=== PATIENT | female | born 1955 | race Caucasian/White ===

== ENCOUNTER 2021-05-29 09:27 | Outpatient (CLI) | payer OTHER, SELFPAY ==
--- NOTE | 2021-05-29 09:35 | ECG_ITS ---
Measurements Intervals [place] Rate: 83 P: 40 MN: 134 QRS: 40 QRSD: 77 T: 46 QT: 344 QTc: 406 Interpretive Statements SINUS RHYTHM BASELINE ARTIFACT- I, II, III, AVR, AVL, AVF NORMAL ECG Electronically Signed On 05-29-2021 9:51:15 [employer]UM [employer]IEF by Ed Amato D.O.
== END 2021-05-29 09:28 | disposition home or self-care (01) ==
LOC: ANHSURGERY 09:30
PROVIDERS: PCP Internal Medicine; Visit Provider Orthopaedic Surgery
DX: Z01.810 Encounter for preprocedural cardiovascular examination (principal); I10 Essential (primary) hypertension
CPT/HCPCS: 93005

== ENCOUNTER 2021-06-03 00:30 | Day surgery (SDC) | payer OTHER, SELFPAY ==
--- NOTE | 2021-05-27 15:44 | PC.NURSE ---
Report to the Outpatient Waiting Room, entrance under the green pavilion located off [facility], at time _1230 on date __06/03/21 . OR Time: __1430 . - You and your visitor will be asked a series of questions to screen for COVID 19 for your protection. - A mask is required within the hospital. - Only one visitor is allowed at this time. Patient visitors will be guided where to wait when not with patient. Preoperative COVID Testing Requirements: No COVID Test needed if: (proof is required; if not received patient will have Rapid Test prior to entry) - Patient has received COVID Vaccine at least 14 days prior to procedure date or - Patient has positive COVID test result within last 90 days of surgery date. COVID Test needed if above criteria is not met If not COVID vaccinated a COVID test must be conducted within 72 hours of surgery and patient is asked to isolate self from time of testing until procedure. You will go to the [facility] for your COVID testing. The [employer] [facility] site is located at the corner of [address] [facility]. You will only be called if COVID results are positive and your surgeon may reschedule your elective surgery date. Patients may have clear liquids (water, carbonated beverages, clear teas, apple juice) until 3 hours prior to surgery with a maximum of 20 ounces. - No food from midnight until time of surgery - Infants may have breast milk until 4 hours before surgery, formula 6 hours prior to surgery. - Children will be allowed to drink immediately following surgery. If applicable, please bring a bottle or sippy cup to assist with drinking. Juice, water, soda, and popsicles are readily available. For infants on formula, please bring formula the day of surgery. Pacifiers are allowed. Take the following medications with a SIP of water the morning of surgery: __NONE Medications to discontinue per physician __ALL VITAMINS AND SUPPLEMENTS 3 DAYS PRE OP Date to take last dose___05/30/21 Please no make-up, nail guatemalan, hairspray, perfume, deodorant, or body powder the day of surgery. No jewelry (including any body piercings) or valuables the day of surgery, leave them at home. Please take a shower or bath the night before, or the morning of, surgery with an antibacterial soap. Wear comfortable, loose fitting clothing. Children are encouraged to wear pajamas. - Jewelry must be removed prior to entering the operating room. Rings and piercings that are not removed may be cut off. - The hospital will not accept responsibility for valuables. - Please leave all valuables, including medications, at home the day of surgery. If you are going home after surgery, a licensed lifter/driver must drive you home. - NO public transportation without another adult. - We recommend that an adult stay with you for 24 hours following discharge. - We also recommend that you do not drive, make important decision, drink alcoholic beverages, or take any drugs that were not prescribed by your health care provider for at least 24 hours after your discharge time. For Pediatric surgeries, we recommend two adults accompany the child home (only one inside the building at this time). Follow any additional instructions given to you from your surgeon. Telephone instructions given to and asked if any additional questions and then verbalized understanding. Patient advised to call surgeon office or pre surgery nurse liaison [phone] if any additional questions.
[2021-05-27 15:49] VITALS: BMI 26.9
--- NOTE | 2021-05-31 15:22 | P.PNAN_ITS ---
Anes - Initial Pre Proc Eval Procedure: Operation Date: 06/03/21 11:00 Proposed Procedures p Evaluation Under Anesthesia of Right Shoulder with Injection - David Orellana MD Date/Time: 05/31/21 15:22 Surgeon: David Orellana MD Pre Op Diagnosis: right frozen shoulder Patient Data Age: 66 Gender: F Height: 1.65 m Weight: 73.5 kg Allergies Allergy/AdvReac Type Severity Reaction Status Date / Time atorvastatin [From Lipitor] AdvReac Muscle Verified 06/03/21 09:49 WEAKNESS ezetimibe [From Zetia] AdvReac Muscle Verified 06/03/21 09:49 WEAKNESS Home Medications Medication Instructions Recorded Confirmed Type evolocumab 140 mg/mL subcutaneous 140 mg SUBCUT [id number] 04/25/20 06/03/21 History pen injector solifenacin 10 mg tablet 10 mg PO DAILY 04/25/20 06/03/21 History lisinopril 10 mg tablet 10 mg PO DAILY 05/01/21 06/03/21 History amlodipine 10 mg tablet 10 mg PO QPM 05/21/21 06/03/21 History acetaminophen [Tylenol 8 Hour] 650 mg PO PRN PRN 05/27/21 06/03/21 History cholecalciferol (vitamin D3) 125 mcg PO DAILY 05/27/21 06/03/21 History multivitamin [Daily Multi-Vitamin] 1 tablet PO DAILY 05/27/21 06/03/21 History Patient hx anesthesia problems: none Family hx anesthesia problems: none Results Review: All pre-operative results and documents have been reviewed as part of the pre-operative evaluation. [facility] Past Medical History Medical History (Updated 05/31/21 @ 15:23 by Tommy Harkins MD) Adhesive capsulitis of right shoulder BMI 27.0-27.9,adult Hyperlipidemia Hypertension Surgical History Surgical History Previous back surgery L5-S1 fusion, 2013, Dr. Amaya Family History Family History Other Cancer Diabetes mellitus Heart disease Hypertension Social History Social History Smoking packs per day: 0.5 Smoking cigarettes per day: 10.0 Years smoked: 10 Smoking pack-years: 5.00 Smoking status: Former smoker Tobacco type: cigarettes Smoking end date: 05/11/97 Alcohol intake: current Drinks per week: 3 Alcohol use details: occasional Living arrangements: with family Additional occupation/education comments: [employer] Gender identity (if verbalized by the patient): Female Spiritual care concerns: No Anes - Eval Final PreProcedure Day of Procedure 05/31/21 15:22 Patient weight: overweight Heart: regular rate and rhythm Lungs: clear to auscultation and normal air movement Airway: Mallampati scale class II Neurological: alert and oriented Last oral intake: >/= 8 hours ASA classification: II Emergent: no Anesthetic plan: proceed Anesthesia type and monitoring: general GIVS Results Review: All pre-operative results and documents have been reviewed as part of the pre-operative evaluation. Informed Consent: The patient's anesthetic plan and its attendant risks and benefits were discussed with the patient/family/POA. Questions were solicited and answers provided to the satisfaction of the patient/family/POA.
[2021-06-03] VITALS (8 sets, daily range): BP systolic 103–134; BP diastolic 70–84; PULSE 68–87; RESP 12–20; TEMP 36.2–37.4; O2SAT 95–100
[2021-06-03] MEDS: ACETAMINOPHEN 500 MG TABLET 1000 MG PO (09:50)
[2021-06-03] MEDS: LACTATED RINGERS 1,000 ML 30 ML IV CONT (10:00)
--- NOTE | 2021-06-03 10:03 | WPDHPUPDATE1 ---
History and Physical Update Update Date/Time: 06/03/21 10:03 History and Physical has been reviewed, including an updated exam of the patient. There are NO changes in the patient's condition. Risks, benefits, and alternatives have been discussed and questions answered. Patient agrees to proceed with procedure.
[2021-06-03] MEDS: KETOROLAC 15 MG/ML VIAL (*BKC) IV PUSH (10:05)
[2021-06-03] MEDS: TRIAMCINOLONE ACET INJ SUSP 50 MG/5 ML VIAL 20 MG IM (10:43)
--- NOTE | 2021-06-03 10:58 | P.OP_ITS ---
Procedure Note - Detailed Date of Procedure 06/03/21 Pre-op Diagnosis right frozen shoulder Post-op Diagnosis same Procedure Performed Evaluation under anesthesia right shoulder with manipulation and intra-articular injection Surgeon David Orellana MD Biometrics Specialist Annette Ruiz Anesthesia general Description of Procedure The patient was identified and proper site identified. She was taken back to the operating area and left on the patient gurney. After general anesthetic induction, the right shoulder was evaluated. After the evaluation, manipulation was carried out and then range of motion again re-evaluated. The values are noted below. Pre manipulation post manipulation Elevation: 120? 160? External rotation: 20? 80? Internal rotation: 45? 70? After the evaluation and manipulation, the shoulder was injected intra- articularly with 2 milliliters of 1% lidocaine and 20 milligrams of Kenalog without incident. Band-Aid was applied. She tolerated procedure well and was taken back to recovery area in stable condition. There were no known intraoperative complications. Estimated Blood Loss 0 Drains No Packing No Pathology other (N/A) Complications No immediate complications Condition stable Disposition PACU
[2021-06-03] MEDS: fentaNYL CITRATE INJ (*CRX) 100 MCG/2 ML VIAL 25 MCG IV PUSH ×2 (11:13→11:22)
[2021-06-03] MEDS: ONDANSETRON INJ 4 MG/2 ML VIAL IV PUSH (12:29)
== END 2021-06-03 12:44 | disposition home or self-care (01) ==
PROVIDERS: PCP Internal Medicine; Visit Provider Orthopaedic Surgery
PROC: (CPT 23700; principal; 2021-06-03 11:00)
DX: M75.01 Adhesive capsulitis of right shoulder (principal); I10 Essential (primary) hypertension; Z98.1 Arthrodesis status; Z87.891 Personal history of nicotine dependence; E78.5 Hyperlipidemia, unspecified
CPT/HCPCS: 23700; 93005; A9270; J1100; J1885; J2250; J2405; J2704; J3010; J3301; J7120

== ENCOUNTER 2021-07-02 10:00 | Outpatient (RCR) | payer OTHER, SELFPAY ==
[2021-06-04 10:29] VITALS: BP_SYST 170
--- NOTE | 2021-06-04 11:38 | PTOPEVAL ---
Thank you for referring Isabella Portillo to [facility].? The patient is scheduled to be seen for therapy 2 x/week for 5 weeks. Please review, sign, date and return this plan of care JOSE. I agree with and certify that the following plan of care is medically necessary. Referring Physician Date Attending Provider: David Orellana MD Diagnosis right frozen shoulder with manipulation Onset 06/03/21- manipulation Additional Evaluation Detail She received therapy at [place] to address her shoulder from October 2020 for 10 weeks. Her symptoms started 09/28. She retired in September from a very stressful job. Subjective Information She reports her main issue is Query Text:As Reported By Patient/ reaching motions, especially Family behind her back for ADL's. Reports improved range since her manipulation yesterday. She does feel she is able to move her right shoulder better. Hobbies: walk dog, play cards, boating. Pain Assessment Right Shoulder(s) Reported Pain Level 2 Pain Description Aching Pain Frequency Chronic,Continuous Lowest Pain Intensity 1 Greatest Pain Intensity 4 Pain Aggravating Factors ADL's Upper Extremity Range of Motion Scapular/ Shoulder Range of Motion Left Shoulder Flexion - Active 170 Shoulder Extension - Active 65 Shoulder Abduction - Active 170 Shoulder Medial Rotation - Active 85 Shoulder Medial Rotation - Active T4:Reach Behind the Back Shoulder Lateral Rotation - Active 90 Shoulder Lateral Rotation - Active T1:Reach Behind the Head Right Shoulder Flexion - Active 140 Shoulder Flexion - Passive 155 Shoulder Extension - Active 50 Shoulder Abduction - Active 130 Shoulder Abduction - Passive 170 Shoulder Medial Rotation - Active 40 Shoulder Medial Rotation - Active L2:Reach Behind the Back Shoulder Lateral Rotation - Active 60 Shoulder Lateral Rotation - Active C6:Reach Behind the Head Scapular/Shoulder Range of Motion lacks inf GH glides, Comments substitution with shoulder motions rotation: GH abd 90 dg in supine Upper Extremity Muscle Strength Testing Scapular/Shoulder Left Scapular Retraction - Middle Trapezius 2+ Poor + Scapular Retraction - Lower Trapezius 2+ Poor + Shoulder Flexion Strength 3+ Fair + Shoulder Extension
--- NOTE | 2021-07-02 10:51 | PTOPEVAL ---
Physical Therapy Discharge Note Thank you for referring Isabella Portillo to [facility].? Isabella has received 9 therapy visits to address her right UE impairments. As a result of skilled therapy services she demonstrates improved shoulder motion, improved UE strength, improved pain and improved UE function with daily task. She has reached maximal potential will skilled therapy services with goals achieved. Will DC skilled therapy at this time. Please review, sign, date and return this discharge summary JOSE. I agree with and certify that the following plan of care is medically necessary. Referring Physician Date Attending Provider: David Orellana MD Problem Diagnosis right frozen shoulder with manipulation Onset 06/03/21- manipulation Additional Evaluation Detail She received therapy at [place] to address her shoulder from October 2020 for 10 weeks. Her symptoms started 09/28. She retired in September from a very stressful job. Subjective Information She reports her shoulder Query Text:As Reported By Patient/ motion has improved with Family reaching in all directions. She c/o slight limitation with reaching behind her back or head. Reports she is performing her HEP. Pain Assessment Right Shoulder(s) Reported Pain Level 0 Pain Description Aching Pain Frequency Intermittent Lowest Pain Intensity 0 Greatest Pain Intensity 1 Upper Extremity Range of Motion Scapular/ Shoulder Range of Motion Right Shoulder Flexion - Active 156 Shoulder Extension - Active 55 Shoulder Abduction - Active 155 Shoulder Medial Rotation - Active 60 Shoulder Medial Rotation - Active T8:Reach Behind the Back Shoulder Lateral Rotation - Active 80 Shoulder Lateral Rotation - Active T2:Reach Behind the Head Scapular/Shoulder Range of Motion rotation: GH abd 90 dg in Comments supine Upper Extremity Muscle Strength Testing Scapular/Shoulder Left Scapular Retraction - Middle Trapezius 3+ Fair + Scapular Retraction - Lower Trapezius 3 Fair Right Scapular Retraction - Middle Trapezius 3+ Fair + Scapular Retraction - Lower Trapezius 3 Fair Shoulder Flexion Strength 4 Good Shoulder Extension Strength 5 Normal Shoulder Abduction Strength 4 Good Shoulder Medial Rotation Strength 5 Normal Shoulder Lateral Rotation Strength 5 Normal PT Clinical Summary Pt referred to therapy due to frozen shoulder with manipulation on 06/03/21. She has attended 9 therapy
== END 2021-07-02 13:23 | disposition home or self-care (01) ==
LOC: ANHPT 10:00
PROVIDERS: PCP Internal Medicine; Visit Provider Orthopaedic Surgery
DX: M75.01 Adhesive capsulitis of right shoulder (principal); Z98.890 Other specified postprocedural states
CPT/HCPCS: 97110; 97140; 97161